=== PATIENT | male | born 1990 | race Hispanic/Latino ===

== ENCOUNTER 2021-12-20 22:58 | Emergency (ER) | payer BC, OTHER ==
[~2021-12-20] VITALS: Ht 170.2 cm; Wt 70.3 kg
[2021-12-20 23:22] LABS: BASOPHILS # (AUTO) 0.1 (0.0-0.1); BASOPHILS % 0.7 % (0.0-1.0); EOSINOPHILS # (AUTO) 0.1 (0.0-0.4); EOSINOPHILS % 0.4 % (0.0-6.0); HEMATOCRIT 48.6 % (38.2-49.6); HEMOGLOBIN 16.4 g/dL (14.0-18.0); LYMPHOCYTES # (AUTO) 3.2 (1.0-3.2); LYMPHOCYTES % 22.6 % (18.0-39.1); MEAN CORPUSCULAR HGB CONC 33.7 g/dL (31-35); MEAN CORPUSCULAR VOLUME 88.8 fL (81-99); MONOCYTES # (AUTO) 0.8 (0.2-0.8); MONOCYTES % 5.6 % (4.4-11.3); NEUTROPHILS # (AUTO) 9.8 (2.1-6.9); NEUTROPHILS % 69.9 % (38.7-80.0); PLATELET COUNT 368 x10e3/uL (140-360); RED BLOOD COUNT 5.47 x10e6/uL (4.3-5.7); RED CELL DISTRIBUTION WIDTH 12.1 % (11.7-14.4)
[2021-12-20 23:33] LABS: ANION GAP 19.2 mmol/L (8-16); CALCIUM 9.8 mg/dL (8.4-10.2); CREATININE, SERUM 0.94 mg/dL (0.72-1.25); POTASSIUM 4.2 mmol/L (3.5-5.1)
[2021-12-20] MEDS ORDERED: IOPAMIDOL 370 MG/ML 200 ML INFUS..BTL INJ ONE (23:36)
[2021-12-20] MEDS ORDERED: SODIUM CHLORIDE 0.9% 50ML 50 ML ONE (23:36)
[2021-12-21] MEDS ORDERED: ONDANSETRON HCL INJ 2MG/ML 2ML 2 MG/ML VIAL IV STA (00:13)
[2021-12-21] MEDS ORDERED: Morphine 4mg Syringe 4 MG/ML INJ IV ONE (00:30)
[2021-12-21] MEDS ORDERED: Morphine 4mg Syringe 4 MG/ML INJ ONE (00:34)
[2021-12-21] MEDS ORDERED: NAPROSYN500 MG PO (00:59)
[2021-12-21] MEDS ORDERED: HYDROCODON-ACE1 EAC9 PO (00:59)
[2021-12-21 01:29] VITALS: BP 137/93
== END 2021-12-21 01:34 | disposition home or self-care (01) ==
LOC: ER 23:02
DX: S42.001A Fracture of unspecified part of right clavicle, initial encounter for closed fracture (principal); S00.81XA Abrasion of other part of head, initial encounter; S60.512A Abrasion of left hand, initial encounter; S60.511A Abrasion of right hand, initial encounter; S90.811A Abrasion, right foot, initial encounter; V28.3XXA Person boarding or alighting a motorcycle injured in noncollision transport accident, initial encounter; Y92.488 Other paved roadways as the place of occurrence of the external cause
CPT/HCPCS: 36415; 70450; 71260; 72125; 73030; 73130 ×2; 73630; 74177; 80048; 85025; 99284; J2270; J2405; Q9967